=== PATIENT | female | born 1980 | race Caucasian/White ===

== ENCOUNTER 2016-11-11 14:51 | Observation (INO) | payer MEDICARE, MEDICAID ==
[~2016-11-11] VITALS: Ht 162.6 cm; Wt 79.4 kg
--- NOTE | 2016-11-11 14:51 | NUR ---
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
--- NOTE | 2016-11-11 16:45 | NUR ---
Patient is discharged by , when instructions given patient reports: "I just don't feel right. I don't know why I feel this way." Dr. Angela notified and will see patient again. Patient notified.
--- NOTE | 2016-11-11 17:00 | NUR ---
Patient's mother arrives and leaves with patient before Dr. Angela visits patient again. Patient walked to [facility] exit door and then became syncopal. Mother yelled for help. This nurse saw patient being lowered to floor by her mother. Patient then seen on back, eyes open, not verbally responsive. Eyelids flutter when touched. Patient assisted to wheelchair after approx. 1 minute. Returned to room 5. Fingerstick blood sugar 109.
[2016-11-11 17:42] LABS: BASOPHILS % (AUTO) 0 % (0-2); EOSINOPHILS # (AUTO) 0.2 10^3uL; EOSINOPHILS % (AUTO) 2 % (0-4); LYMPHOCYTES # (AUTO) 3.2 X10^3; MEAN CORPUSCULAR HGB CONC 35.3 g/dL (31.0-37.0); MEAN CORPUSCULAR VOLUME 92 FL (80-100); MEAN PLATELET VOLUME 8.8 FL (6.0-9.5); MONOCYTES # (AUTO) 0.7 X10^3; MONOCYTES % (AUTO) 7 % (3-11); NEUTROPHILS # (AUTO) 5.5 X10^3; NEUTROPHILS % (AUTO) 57 % (51-67); PLATELET COUNT 315 10^3uL (150-450)
[2016-11-11 17:58] LABS: ALBUMIN 4.1 g/dL (3.4-5.0); ALKALINE PHOSPHATASE 95 U/L (38-126); BUN/CREATININE RATIO 23 (10-20); CALCULATED IONIZED CALCIUM 3.8 mg/dL (3.8-4.6)
[2016-11-11 18:11] LABS: BILIRUBIN,URINE Negative (Negative); CLARITY,URINE Clear; COLOR,URINE Yellow; GLUCOSE, URINE (UA) Negative (Negative); LEUKOCYTE ESTERASE ,URINE Negative (Negative); UROBILINOGEN,URINE 0.2 mg/dL (0.2-1.0)
[2016-11-11 18:17] LABS: MEAN CORPUSCULAR HEMOGLOBIN 32.4 PG (26.0-34.0)
[2016-11-11 18:23] LABS: AMPHETAMINE SCREEN, URINE Negative (Negative); CANNABINOID SCREEN, URINE Negative (Negative); METHAMPHETAMINE SCREEN URINE S NEGATIVE (NEGATIVE); OPIATE SCREEN URINE Negative (Negative); PROPOXYPHENE STAT NEGATIVE (NEGATIVE)
--- NOTE | 2016-11-11 19:06 | NUR ---
Recieved report from RN. Will assume care.
--- NOTE | 2016-11-11 19:31 | NUR ---
PLAN FOR PT TO STAY OVERNIGHT FOR OBSERVATION- PT WILL GO TO [facility] 316
[2016-11-11] MEDS ORDERED: ONDANSETRON 2 MG/ML (Z0FRAN) 2 ML VIAL IV PRN (19:35)
--- NOTE | 2016-11-11 19:50 | NUR ---
Pt arrives to 316 via w/c from ED. Pt alert, oriented, answers questions appropriately. Ambulates from w/c to weight chair and bed w/o difficulty. IVF initiated per order. See admission database for further details.
[2016-11-11] MEDS: NS W/KCL 20 MEQ/L 1,000 ML IV SCH (19:56)
[2016-11-11 19:57] VITALS: BP 113/76
[2016-11-11 20:46] VITALS: BP 113/76
[2016-11-12 00:14] VITALS: BP 114/63
--- NOTE | 2016-11-12 02:45 | NUR ---
Pt resting quietly with eyes closed.
[2016-11-12] MEDS: NS W/KCL 20 MEQ/L 1,000 ML IV SCH (03:59)
[2016-11-12 04:04] VITALS: BP 108/68
--- NOTE | 2016-11-12 06:01 | NUR ---
Pt rests well throughout the night. Denies discomforts this morning. IVF infusing w/o difficulty. No syncopal episodes this shift. Telemetry remains stable.
[2016-11-12 06:53] LABS: ALBUMIN 3.4 g/dL (3.4-5.0); ANION GAP 9.7 MEQ/L (3-15); TOTAL PROTEIN 6.2 g/dL (6.4-8.5)
--- NOTE | 2016-11-12 07:30 | NUR ---
Patient sitting up in bed upon shift assessment. Alert and oriented X3. Reports mild blurred vision and feeling of "floating" in head that started yesterday. Agrees to call if she needs to ambulate. Denies dizziness, pain, or nausea. Updated on plan of care for shift. Call light in reach.
[2016-11-12 07:38] VITALS: BP 104/64
[2016-11-12] MEDS ORDERED: NS FLUSH 3 ML PRN IV (08:35)
[2016-11-12] MEDS ORDERED: NS FLUSH 10 ML PRN IV (08:35)
[2016-11-12] MEDS ORDERED: NS FLUSH 3 ML DAILY IV SCH (09:00)
--- NOTE | 2016-11-12 10:16 | NUR ---
Patient ambulates 3 laps in [place] at moderate speed with standby assist. Denies dizziness. No changes noted to telemetry.
--- NOTE | 2016-11-12 10:57 | NUR ---
Discharge order received. IV discontinued with catheter intact. Instructions provided with verbal and written understanding expressed. Telemetry discontinued.
--- NOTE | 2016-11-12 11:42 | NUR ---
Patient dismissed ambulatory to private car accompanied by wardrobe consultant. Denies pain or dizziness. No further needs.
== END 2016-11-12 11:43 | disposition home or self-care (01) ==
LOC: ED 14:53 → MED/SURG 19:28
PROVIDERS: ADMIT Hospitalist; ATTEND Hospitalist
DX: R55 Syncope and collapse (principal); E87.79 Other fluid overload; E87.1 Hypo-osmolality and hyponatremia; E87.6 Hypokalemia; R74.0 Nonspecific elevation of levels of transaminase and lactic acid dehydrogenase [LDH]; B19.20 Unspecified viral hepatitis C without hepatic coma; G43.909 Migraine, unspecified, not intractable, without status migrainosus; F17.200 Nicotine dependence, unspecified, uncomplicated
CPT/HCPCS: 36415; 70450; 72125; 80053; 81003; 84484; 85025; 93005; 96361; 96365; 96366; 99284; G0378; G0478; G0480; J7030; 80307; 80320; 93010; 96360; 99218

== ENCOUNTER → 2016-11-11 | Outpatient (CLI) | payer MEDICARE, MEDICAID | LOC: EMS 15:01 | PROVIDERS: ATTEND Emergency Medicine | DX: R51 Headache (principal); W19.XXXA Unspecified fall, initial encounter; Y92.240 Courthouse as the place of occurrence of the external cause; R55 Syncope and collapse ==